=== PATIENT | female | born 1990 | race Caucasian/White ===

== ENCOUNTER 2021-05-30 02:17 | Emergency (ER) | payer OTHER ==
[~2021-05-30] VITALS: Ht 162.6 cm; Wt 87.5 kg
[2021-05-30 02:53] LABS: ABSOLUTE EOSINOPHILS 0.2 thou/uL (0.0-0.7); ABSOLUTE LYMPHOCYTES 1.6 thou/uL (0.8-5.3); ABSOLUTE MONOCYTES 0.6 thou/uL (0.0-1.2); ABSOLUTE NEUTROPHILS 9.5 thou/uL (1.6-8.1); BASOPHILS 0.4 %; EOSINOPHILS 1.8 %; HEMATOCRIT 40.7 % (37.0-47.0); HEMOGLOBIN 14.1 gm/dL (12.0-15.0); LYMPHOCYTES 13.5 %; MCH 31.2 pg (26.0-34.0); MCHC 34.6 g/dL (28.0-37.0); MCV 90.1 fL (80.0-100.0); MONOCYTES 5.4 %; MPV 6.6 fl. (7.2-11.1); NUCLEATED RBCS 0 /100WBC; PLATELET COUNT* 291 thou/uL (150-400); POLYS 78.9 %; RBC 4.52 mil/uL (4.20-5.00); RDW-CV 12.4 % (10.5-14.5); WBC 12.1 thou/uL (4.0-11.0)
[2021-05-30 02:57] LABS: CALCIUM 8.6 mg/dL (8.5-10.1); POTASSIUM 4.1 mmol/L (3.5-5.1)
[2021-05-30] MEDS ORDERED: TRAMADOL 50 MG50 MG PO (04:44)
[2021-05-30] MEDS ORDERED: FLEXERIL PO (04:44)
[2021-05-30 05:01] VITALS: BP 132/78
== END 2021-05-30 05:02 | disposition home or self-care (01) ==
LOC: M.ERS 02:17
PROVIDERS: Emergency Medicine
DX: R07.89 Other chest pain (principal)